=== PATIENT | male | born 1995 | race Caucasian/White ===

== ENCOUNTER 2018-11-03 20:05 | Emergency (ER) | payer OTHER ==
--- NOTE | 2018-11-03 22:16 | EDPHY ---
General Time Seen by Provider: 11/03/18 22:05 Narrative: CLINICAL IMPRESSION: Head injury, right eye visual disturbance ASSESSMENT/PLAN: Patient is a 23-year-old male with no significant medical history who presents to the emergency department with headache and right eye visual disturbance after sustaining a head injury 2 days prior. Patient is well appearing and in no acute distress, complains of mild discomfort at site of impact as well as generalized headache. The fall was witnessed and there was no loss of consciousness. Patient is afebrile and nontoxic-appearing, he is in no acute distress on arrival. His neurological exam is grossly normal with no focal deficit. Funduscopic examination unremarkable. CT head with no evidence of acute intracranial hemorrhage, retro-orbital hematoma or skull fracture. Ophthalmology was consulted, spoke directly with Dr. Iglesias. Patient with reassuring physical examination however with subjective right visual disturbance concerning for possible retinal detachment. Dr. Iglesias felt it was safe for the patient to be discharged with close follow-up tomorrow morning or he will get a formal ophthalmologic evaluation. History and physical examination is consistent with concussion and visual disturbance either secondary to concussion or possible retinal detachment. There were no findings to suggest intracranial hemorrhage, skull fracture, retro-orbital hematoma, traumatic iritis, hyphema, globe injury or other acute ophthalmological emergency. Patient will call Dr. Iglesias tomorrow morning at 8:00 a.m. To be seen for examination. Strict return precautions were discussed- he will return to the emergency department for vision loss, worsening headache, altered mentation, lethargy, vomiting, seizure, abnormal movements or for any other concerning symptom. Patient verbalizes understanding and is in agreement with this plan. DIFFERENTIAL DX: Head injury including but not limited to concussion, skull fracture, intraparenchymal contusion, subarachnoid, subdural, epidural hematoma, traumatic eye injury, traumatic iritis, retinal detachment. ED PROCEDURES: Visual acuity left eye: 20/20 Visual acuity right eye: 20/15 Visual acuity bilateral: 20/15 ED COURSE: 2210: Case discussed with Dr. Gutierrez 2228: Case discussed with Dr. Wynn, no evidence evidence of retro-orbital hematoma, orbital fracture or acute intracranial abnormality. 2235: Discussed with Dr. Iglesias manager motor. He would like to see this patient tomorrow morning in his office. CHIEF COMPLAINT: Head injury HPI: Patient is a 23-year-old male with no significant medical history who presents to the emergency department with complaints of headache and right eye flickering light sensation. Patient reports 2 days ago he slipped and fell on the ice causing him to hit his head on the concrete. Patient did not lose consciousness. He denies any new focal neurologic deficit, there has been no altered mentation, he has no known bleeding disorder, there has been no vomiting and no posttraumatic seizure. Patient has had mild ongoing headache since his fall, denies it being the worst headache of his life and his not progressively worsened. He denies any dizziness, vision loss, focal weakness or ataxia. Patient reports today he laid down to take a nap and experienced this sensation of flickering light in his right eye when his eyelid was closed. Patient denies any vision change with his eye open, there has been no vision loss. He has been experiencing some pain posterior to his right eyeball that has been constant. He denies any difficulties or increased pain with moving his eye around. Called his manager motor this afternoon at 4:00 a.m., they could not see him and subsequently told him to come to the emergency department for further evaluation and concerns of possible retinal detachment. PAST MEDICAL HISTORY: Denies Pertinent Past Surgical History: Denies Family History: Noncontributory Social History: Denies smoking or illicit drug use. ROS: A full 10 point review of systems was negative except for those mentioned in HPI. PHYSICAL EXAM: General Appearance: Well-appearing, no acute distress. HEENT: TMs are clear bilaterally no perforation or evidence of hemotympanum. No Rojas sign or raccoon eyes. Oropharynx clear is no erythema or exudates, no tonsillar hypertrophy or asymmetry. Dentition without abnormality. Eyes: Visual torre = WNL. EOMI intact without evidence of entrapment. PERRLA. No eyelid edema, blepharitis, or cellulitis. No conjunctival hemorrhages, hyphema, or hypopyon. No nystagmus, swelling, discharge, pain or photosensitivity. Conjunctiva pink, no pallor or injection. Funduscopic- no papilledema, retinal hemorrhages or cotton wool spots observed ( w/out eye dilated). Neck: Supple, nontender, no lymphadenopathy, no midline pain, FROM, no meningismus. Respiratory: There are no retractions, lungs are clear to auscultation. Cardiac: Regular rate and rhythm, no murmurs or gallops. Gastrointestinal: Abdomen is soft, nontender, bowel sounds normal, no masses/ hernia, no rigidity, guarding or focal peritoneal findings. Skin: Warm, dry, no rashes, no nodules on palpation. Neuro: MENTAL STATUS: Patient is alert and oriented to person, place, time, and situation. Recent and remote memory are intact. Attention and concentration are normal. Found knowledge is appropriate to level of education. Mood and affect normal. SPEECH: Language including naming, repetition, comprehension, and spontaneous speech are normal. No dysarthria or dysphagia. CRANIAL NERVES: II: Visual torre are full to confrontation. Vision is grossly intact. III, IV, : Pupils are equal, round, reactive to light. Extraocular eye movements are full and without nystagmus. V: Facial sensation is intact to touch symmetrically in all 3 divisions. VII: Face is symmetric at rest with no asymmetry of grimace or evidence of facial weakness. VIII: Hearing is intact bilaterally to finger rub. IX, X: Palate is midline and elevates symmetrically with intact cough/gag. XI: Sternocleidomastoid and trapezius strength is normal. XII: Tongue protrudes midline without atrophy or fasciculations. MOTOR: Normal bulk and tone symmetrically in the upper and lower extremities. Upper extremities: shoulder abduction, elbow flexion, elbow extension, flexion of fingers and finger abduction strength 5/5 bilaterally. Lower extremities: hip flexion, knee flexion and extension, plantar and dorsiflexion of foot, and great toe extension strength 5/5 bilaterally. No pronator drift. SENSORY: Sensation is intact to light touch and symmetric in the UE's in LE's bilaterally. Romberg is negative. COORDINATION: Fine motor and rapid alternating movements are normal. Finger to nose is normal bilaterally. [id number] is normal bilaterally. No abnormal movements noted. There is no tremor at rest or with posture or action. GAIT/STATION: Casual, straightforward gait is normal. Patient can walk on toes and on heels. No gait instability. MEDICAL DECISION MAKING: Patient was seen independently. Secondary supervising physician at time of evaluation was Dr. Gutierrez, I discussed this case with him however he did not personally evaluate the patient. Diagnosis: Concussion, right eye visual disturbance. New, requires workup Summary: See Assessment and Plan for summary of ED visit Clinical lab tests: ordered / reviewed. Independent visualization of images, tracing, or specimens: Yes. Decision to obtain medical records or history from someone other than the patient: No Review / Summarize previous medical records: Yes Discussed patient with another provider: Yes, Dr. Gutierrez and Dr. Iglesias Patient Progress: Stable, discharged. - Diagnostics Imaging Results: Imaging Impressions Head CT 11/03/18 21:59 Impression: 1. Mild bilateral maxillary sinusitis, right greater than left. 2. No acute hemorrhage, hydrocephalus or mass effect. 3. No skull fracture. 4. No definite retro-orbital hematoma. Findings and recommendations discussed with Emergency Department physician, JENNIFER Lowry at 22:28 hour, 11/03/2018. Final report concurs with initial preliminary interpretation. - History Smoking Status: Never smoked - Objective Vital Signs: Initial Vital Signs Temperature (C) 36.9 C 11/03/18 20:09 Heart Rate 60 11/03/18 20:09 Respiratory Rate 16 11/03/18 20:09 Blood Pressure 151/92 H 11/03/18 20:09 O2 Sat (%) 96 11/03/18 20:09 O2 Delivery Mode Room Air Allergies/Adverse Reactions: No Known Allergies Allergy (Unverified 11/03/18 20:07) Home Medications: Medication Instructions Recorded NK [No Known Home Meds] 11/03/18 Departure - Departure Disposition: Home, Routine, Self-Care Clinical Impression: Concussion, Visual disturbance Condition: Good Instructions: Concussion (ED) Additional Instructions: DISCHARGE INSTRUCTIONS FROM YOUR DOCTOR Thank you for visiting our emergency department today. Please keep in mind that discharge from the emergency department does not mean that there is nothing wrong - it simply means that we have not identified an emergency condition that requires further evaluation or treatment in the hospital. Y It is important that you follow up with Ophthalmology, Dr. Iglesias would like to see you tomorrow morning. Please call his office at 8 or 8:30 a.m. To schedule an appointment to be seen by him for formal ophthalmologic examination. For pain control: You may take Tylenol, I recommend 500-1000 mg every 6-8 hours as needed. Take with food and a full glass of water. Stop taking if this is upsetting her stomach. Do not exceed 4000 mg in a 24 hr period. You may also take ibuprofen, recommend 400 mg every 6 hr. Take with food and a full glass of water. Stop taking if this upsets her stomach. Do not exceed 2400 mg in a 24 hr period. GRADUAL [id number] PROTOCOL Patient must be symptom free for 24 hours before progressing to the next step. If patient has symptoms during Step's 2-6, stop activity and return previous step. Patient can not progress to next step unless current step can be completed with out any symptoms (ie headache, dizziness, confusion...) Bright lights, TV, computers, music, reading can trigger or worsen concussion symptoms thus should be avoided or used in moderation. Step 1. NO same day return to play, rest only , do not proceed to Step 2 until all symptoms have resolved Step 2. LIGHT aerobic exercise (ie walking, swimming or stationary cycling), while keeping intensity < 70% max heart rate Step 3. Sport-specific exercise (ie skating drills in ice hockey-no passing, running drills in soccer-no passing), NO HEAD IMPACT ACTIVITIES Step 4. NON-contact training, with progression to more complex drills (ie passing drills) NO HEAD IMPACT ACTIVITIES Step 5. Full-contact practice AFTER getting medical clearance Step 6. Return to game play This was based from: Consensus statement on concussion in sport: the 4th International Conference on Concussion in Sport held in [place], Jul 2012. Br J Sports MEd. 2013;47(5):250- 258 People present with illnesses and injuries in different ways, and it is always possible that we have missed something. You may always return for re-evaluation if symptoms worsen or if they are not improving or if you develop new/different symptoms. Again, thank you for choosing our emergency department. We hope that you feel better. Referrals: JANETTE KANG [Primary Care Provider] - As per Instructions Tyler Iglesias MD [Medical Doctor] - 1 day without fail (Please call tomorrow morning around 8 or 830 to be seen by Dr. Iglesias for a formal ophthalmologic evaluation) Chelsea Domínguez MD [Medical Doctor] - As per Instructions (Please follow-up if you have persistent or ongoing issues with concussion symptoms)
[2018-11-03 23:01] VITALS: BP 153/74
== END 2018-11-03 23:02 | disposition home or self-care (01) ==
DX: S06.0X0A Concussion without loss of consciousness, initial encounter (principal); H53.9 Unspecified visual disturbance; W19.XXXA Unspecified fall, initial encounter